=== PATIENT | female | born 1990 | race Caucasian/White ===

== ENCOUNTER → 2021-07-31 | Outpatient (REF) | LOC: M LABSMTC 11:31 | PROVIDERS: ATTEND Pediatrics | DX: Z20.822 Contact with and (suspected) exposure to COVID-19 (principal) ==

== ENCOUNTER → 2021-08-03 | Outpatient (REF) | LOC: M LABSMTC 09:42 | PROVIDERS: ATTEND Pediatrics | DX: Z20.822 Contact with and (suspected) exposure to COVID-19 (principal) ==

== ENCOUNTER → 2021-08-05 | Outpatient (REF) | LOC: M LABSMTC 10:50 | PROVIDERS: ATTEND Pediatrics | DX: Z20.822 Contact with and (suspected) exposure to COVID-19 (principal) ==

== ENCOUNTER → 2021-09-01 | Outpatient (CLI) | payer BC ==
[2021-09-01 08:06] LABS: HEMATOCRIT 36.9 % (36.0-47.0); HEMOGLOBIN 12.6 g/dl (12.0-15.5); MEAN CORPUSCULAR HEMOGLOBIN 29.5 pg (27.0-33.0); MEAN CORPUSCULAR HGB CONC 34.1 g/dl (32.0-36.5); MEAN CORPUSCULAR VOLUME 86.4 fl (80.0-96.0); PLATELET COUNT, AUTOMATED 268 10^3/uL (150-450); RED BLOOD COUNT 4.27 10^6/uL (4.00-5.40)
[2021-09-01 08:42] LABS: ALBUMIN 4.1 GM/DL (3.2-5.2); ALT/SGPT 28 U/L (12-78); BILIRUBIN,TOTAL 0.3 MG/DL (0.2-1.0); BLOOD UREA NITROGEN 14 MG/DL (7-18); CALCIUM LEVEL 9.4 MG/DL (8.5-10.1); CARBON DIOXIDE LEVEL 27 MEQ/L (21-32); CHLORIDE LEVEL 105 MEQ/L (98-107); CHOLESTEROL LEVEL 134 MG/DL (<200); CHOLESTEROL RISK RATIO 2.481 (<5); CREATININE FOR GFR 0.62 MG/DL (0.55-1.30); GLOMERULAR FILTRATION RATE > 60.0 (>60); GLUCOSE, FASTING 94 MG/DL (70-100); HDL CHOLESTEROL 54 MG/DL (>40); IRON (FE) 36 UG/DL (50-170); LDL CHOLESTEROL 72 MG/DL (<100); NON-HDL-C 80 MG/DL; PERCENT SATURATION 9.9 % (13.2-45.0); POTASSIUM SERUM 3.8 MEQ/L (3.5-5.1); SODIUM LEVEL 139 MEQ/L (136-145); TOTAL IRON BINDING CAPACITY 363 UG/DL (250-450); TOTAL PROTEIN 7.4 GM/DL (6.4-8.2); TRIGLYCERIDES LEVEL 38 MG/DL (<150)
[2021-09-01 10:45] LABS: HEMOGLOBIN A1c 5.1 %
[2021-09-01 11:09] LABS: TOTAL 25(OH) VITAMIN D 26.7 NG/ML (30.0-100.0)
== END ==
LOC: M LAB 07:41
PROVIDERS: ATTEND Family Medicine
DX: D64.9 Anemia, unspecified (principal); R53.83 Other fatigue; E03.9 Hypothyroidism, unspecified

== ENCOUNTER → 2022-02-03 | Outpatient (REF) | payer BC | LOC: M LAB REF 21:24 | PROVIDERS: ATTEND Physician Assistant | DX: R50.9 Fever, unspecified (principal); R53.83 Other fatigue; R05.9 Cough, unspecified ==

== ENCOUNTER → 2022-07-21 | Outpatient (REF) | payer BC ==
[2022-07-21 16:46] LABS: GC DNA AMPLIFICATION NEGATIVE (NEGATIVE)
== END ==
LOC: M LAB REF 14:31
PROVIDERS: ATTEND Physician Assistant
DX: Z20.9 Contact with and (suspected) exposure to unspecified communicable disease (principal)

== ENCOUNTER 2022-12-10 14:10 | Emergency (ER) | payer BC ==
[~2022-12-10] VITALS: Ht 165.1 cm; Wt 59.1 kg
[2022-12-10 14:11] VITALS: BP 150/86
[2022-12-10] MEDS ORDERED: PROPARACAINE 0.5% OPHTH SOL 15ML OD ONE (15:55)
[2022-12-10] MEDS ORDERED: FLUORESCEIN OPHTH 1MG STRIP OD ONE (15:55)
[2022-12-10] MEDS ORDERED: OCUF0.25 OD (16:49)
== END 2022-12-10 17:21 | disposition home or self-care (01) ==
LOC: M ED 14:10
DX: S05.01XA Injury of conjunctiva and corneal abrasion without foreign body, right eye, initial encounter (principal); W22.8XXA Striking against or struck by other objects, initial encounter; Y93.E5 Activity, floor mopping and cleaning; Y99.0 Civilian activity done for income or pay; Z79.899 Other long term (current) drug therapy